=== PATIENT | male | born 1980 | race Caucasian/White ===

== ENCOUNTER 2023-01-11 09:07 | Emergency (ER) | payer OTHER ==
[~2023-01-11] VITALS: Ht 172.7 cm; Wt 73.0 kg
[2023-01-11 09:12] VITALS: BP 127/87
[2023-01-11 09:58] LABS: BASOPHILS % 0.6 % (0.0-2.0); EOSINOPHILS % 2.6 % (0.0-5.0); HEMATOCRIT. 46.9 % (42.0-52.0); HEMOGLOBIN. 16.7 g/dL (14.0-18.0); LYMPHOCYTES % 21.4 % (20.0-50.0); MEAN CORPUSCULAR HEMOGLOBIN 33.1 pg (28.0-32.0); MEAN CORPUSCULAR VOLUME 93.2 fL (80.0-94.0); MEAN PLATELET VOLUME 8.9 fl (7.4-10.4); MONOCYTES % 7.7 % (2.0-8.0); NEUTROPHILS % 67.7 % (40.0-76.0); PLATELET 216 x1000/uL (130-400); RED BLOOD CELL COUNT 5.04 mill/uL (4.7-6.1); RED CELL DISTRIBUTION WIDTH 12.9 % (11.6-14.6)
[2023-01-11 10:53] LABS: CHLORIDE 108 mEq/L (98-107)
[2023-01-11] MEDS ORDERED: LORAZEPAM 1MG TABLET PO ONE (11:30)
[2023-01-14 13:11] LABS: TOPIRAMATE 7.7 ug/mL (2.0-25.0)
== END 2023-01-11 12:41 | disposition home or self-care (01) ==
LOC: ER 09:07
DX: R56.9 Unspecified convulsions (principal)
CPT/HCPCS: 36415; 80053; 80201; 85025; 99283